=== PATIENT | male | born 2000 | race Caucasian/White ===

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

== ENCOUNTER 2025-01-19 13:29 | Emergency (ER) | payer BC, OTHER ==
[~2025-01-19] VITALS: Ht 172.7 cm; Wt 77.0 kg
[2025-01-19 13:37] VITALS: O2SAT 98
[2025-01-19] MEDS ORDERED: LIDOCAINE HCL/PF 1% 10 MG/ML 5ML VIAL INFIL ONE (13:45)
[2025-01-19] MEDS ORDERED: TETANUS, DIPHTHERIA, PERTUSSIS VAC/PF 0.5ML (>10YR OLD) IM ONE (13:45)
[2025-01-19] MEDS ORDERED: BACITRACIN ZINC OINT UDPKT TOP ONE (13:45)
[2025-01-19] MEDS: IBUPROFEN 600MG TABLET PO ONE (14:09)
[2025-01-19] MEDS ORDERED: IBUP-2029 MT (14:44)
[2025-01-19] MEDS ORDERED: BO1 TP (14:46)
[2025-01-19 15:06] VITALS: BP 116/65; PULSE 76; RESP 16; TEMP 36.7; O2SAT 100
== END 2025-01-19 15:07 | disposition home or self-care (01) ==
LOC: ER 13:29
DX: S31.113A Laceration without foreign body of abdominal wall, right lower quadrant without penetration into peritoneal cavity, initial encounter (principal); I10 Essential (primary) hypertension; J45.909 Unspecified asthma, uncomplicated; Z90.49 Acquired absence of other specified parts of digestive tract; X58.XXXA Exposure to other specified factors, initial encounter; Y93.89 Activity, other specified; Y92.89 Other specified places as the place of occurrence of the external cause; Y99.8 Other external cause status
CPT/HCPCS: 74018; 12002; 99283; J2003; Z7610; 90715